=== PATIENT | female | born 1960 | race Caucasian/White ===

== ENCOUNTER 2016-10-27 17:04 | Emergency (ER) | payer BC ==
[~2016-10-27] VITALS: Ht 177.8 cm; Wt 93.3 kg
[~2016-10-27 17:04] MED LIST: BUSPAR15 MG PO; CELEXA40 MG PO; KLONOPIN0.25 M1 PO; KLONOPIN0.5 M1 PO; PROBIOTIC1 EAC1 PO; XANAX0.25 MG PO; ZYRTEC10 M3 PO
[2016-10-27 17:25] LABS: HEMATOCRIT 38.7 % (36.0-46.0); MCH 30.5 PG (29.0-34.0); MCHC 33.1 G/DL (30.0-36.0); MCV 92.4 FL (83-99); MEAN PLAT.VOLUME 9.2 uM^3 (9.5-12.4); PLATELET COUNT 328 K/uL (156-360); RBC DIS.WIDTH-CV 12.2 % (11.8-14.6); RBC DIS.WIDTH-SD 41.5 % (39-53); RED BLOOD COUNT 4.19 M/uL (3.80-5.20); WHITE BLOOD COUNT 12.1 K/uL (4.1-10.2)
[2016-10-27 17:39] LABS: CHLORIDE 106 mEq/L (99-109); POTASSIUM 3.4 mEq/L (3.7-5.4); SODIUM 140 mEq/L (136-147)
[2016-10-27 17:41] LABS: GLUCOSE 84 mg/dL (70-99)
[2016-10-27 17:42] LABS: ANION GAP 8 MEQ/L (2-14)
[2016-10-27 17:44] LABS: GFR ESTIMATE (CALCULATED) > 59 mL/min/
[2016-10-27 17:45] LABS: UREA NITROGEN (BUN) 14 mg/dL (9-23)
[2016-10-27 17:52] LABS: TROP-I INTERPRETATION NEGATIVE; TROPONIN-I < 0.01 ng/mL (0.0-0.30)
[2016-10-27 19:39] LABS: TROP-I INTERPRETATION NEGATIVE; TROPONIN-I < 0.01 ng/mL (0.0-0.30)
[2016-10-27 20:02] VITALS: BP 101/64
== END 2016-10-27 20:19 | disposition home or self-care (01) ==
LOC: EME 17:04
PROVIDERS: Emergency Medicine
DX: R07.9 Chest pain, unspecified (principal); F17.200 Nicotine dependence, unspecified, uncomplicated
CPT/HCPCS: 71020; 80048; 84484; 85027; 93005; 99281; 99284